=== PATIENT | male | born 1990 | race African-American/Black ===

== ENCOUNTER → 2016-06-14 | Outpatient (CLI) | payer OTHER ==
[~2016-06-14] MED LIST: AZTH250C PO; GUAI600T3 PO; MELO-255 PO; PRCD5U PO
--- NOTE | 2016-06-14 14:40 | Diagnostic Imaging Report ---
PROCEDURE: CT left lower extremity without contrast. TECHNIQUE: Multiple contiguous axial images were obtained through the left lower extremity without the use of intravenous contrast. Sagittal and coronal reformations were then performed. INDICATION: Ankle pain. Further evaluation of talus avulsion fracture. COMPARISON: Left ankle radiographs 02/23/16. FINDINGS: Overlying the dorsal aspect of the talar neck, there is a thin linear ossific fragment measuring less than 2 mm in size which is most compatible with tiny avulsion fracture at the capsular insertion of the ankle. There are 2 additional thin linear 2 mm or less ossific fragments dorsal to the more distal talar head, which are most compatible with avulsion injuries at the origin of the dorsal talonavicular ligament. There is mild osseous fragmentation of the anterior process of the calcaneus, compatible with old injury. There is associated overlying soft tissue subcutaneous edema and swelling. There is a 2 x 2 mm intra-articular ossific fragment in the central aspect of the tibiotalar joint with probable donor site arising from the central aspect of the tibial plafond (best visualized on image 21, series 7). There is no osteochondral lesion of the talar dome. There are 3 small ossific fragments at the tip of the lateral malleolus within the anterior talofibular ligament, compatible with old injury. No additional fracture is seen. Joint spaces are well maintained. The distal Achilles tendon is normal. The peroneal, medial flexor and anterior extensor tendons about the ankle are grossly normal by CT. IMPRESSION: 1. Osteochondral lesion of the central talar dome with a displaced loose ossific fragment in the central aspect of the tibiotalar joint. Ossific fragment measures approximately 2 x 2 mm. 2. Mildly comminuted remote fracture of the tip of the anterior process of the calcaneus. There are numerous mildly displaced ossific fragments around the distal aspect of the anterior process of the calcaneus. 3. Old avulsion fracture of the dorsal talus at the origin of the dorsal talonavicular ligament. 4. Additional tiny avulsion fragment arises from the dorsal aspect of the talar neck at the capsular insertion. Dictated by: Dictated on workstation # [id number]
== END ==
LOC: RAD 12:26
PROVIDERS: ATTEND Family Medicine
DX: S92.15 Avulsion fracture (chip fracture) of talus (principal); X58.XXXS Exposure to other specified factors, sequela
CPT/HCPCS: 73700; 76376